=== PATIENT | female | born 1985 | race Caucasian/White ===

== ENCOUNTER 2021-09-07 19:36 | Emergency (ER) | payer MEDICAID, SELFPAY ==
[2021-09-07 19:40] VITALS: BP 156/89; PULSE 104; RESP 22; TEMP 36.7; O2SAT 97; BMI 37.8
--- NOTE | 2021-09-07 19:43 | XR_ITS ---
PROCEDURE INFORMATION: Exam: XR Right Foot Exam date and time: 09/07/2021 7:43 PM Age: 36 years old Clinical indication: Injury or trauma; Fall; Blunt trauma; Foot; Right; Additional info: Fell TECHNIQUE: Imaging protocol: XR Right foot. Views: 3 or more views. COMPARISON: No relevant prior studies available. FINDINGS: Bones/joints: Normal. Soft tissues: Normal. IMPRESSION: No acute findings.
--- NOTE | 2021-09-07 20:21 | HMH.EDUTC ---
[facility] – [place] Disposition Clinical Impression: Foot contusion Qualifiers: Encounter type: initial encounter Laterality: right Qualified Code(s): S90.31XA - Contusion of right foot, initial encounter Disposition: Home, Self-Care Condition on Discharge: Good Instructions: How To Perform RICE (Rest, Ice, Compress, Elevate), DI for Contusion, DI for Foot Sprain Additional Instructions: *weight bearing as tolerated *RICE, Rest the extremity, Ice 15-20 minutes 3-4 times daily, Compress- wear the maury wrap as discussed as much as possible to help reduce swelling and pain, Elevate the extremity when at rest *Maury wrap is for support and help control swelling, use it except in the shower. Be sure that is not to tight but not to loose either *Elevate when resting *Tylenol may help with pain if you can take it Immediately follow up with your family doctor for new or worsening of symptoms, or no noticeable improvement over the next 3-5 days Return if needed Referrals: Provider,Referral, MD [Primary Care Provider] - As needed Time of Disposition: 20:34 Medical Decision Making - Arash Inquiry Pt receiving controlled substance: No Arash was queried for this patient: No Vital Signs: 09/07/21 19:40 Temperature 98.0 F Temperature Source Oral Pulse Rate [Left Brachial] 104 H Respiratory Rate 22 Blood Pressure [Left Arm] 156/89 H Blood Pressure Mean [Left Arm] 111 Blood Pressure Source [Left Arm] Automatic Cuff Blood Pressure Position [Left Arm] Sitting 02 Sat by Pulse Oximetry 97 Oxygen Delivery Method Room Air - Radiology Data #1 Image(s): Foot/Toes Image Reviewed: Yes I have reviewed radiologist's interpretation IMPRESSION: No acute findings. [facility] – [place] HPI - General Stated complaint: [birth year]01[birth year] INJURED r FOOT Time Seen by Provider: 09/07/21 20:21 Mode of Arrival: Ambulatory Source of Information: Patient Limitations: No Limitations Description of Symptoms (Recalled from Triage Doc. by RN): PATIENT C/O INJURY TO RIGHT FOOT AFTER FALLING UP SOME STEPS APPROX 2 HOURS ARCH [employer] HEENT Symptoms (Recalled from RN notes): No Resp Symptoms (Recalled from RN notes): No Skin Symptoms (Recalled from RN notes): No MS Symptoms (Recalled from RN notes): Yes Functional Status (Recalled from RN notes): WNL - History of Present Illness Provider Complaint: Patient states that she was walking up the steps at home when the cat ran in front of her and tripped her and she fell up the steps States that she thinks she may have landed on her foot somehow States that ever since she has been having pain when she tries to walk on it and it looked bruised and swollen so she came in - Related Data Allergies Allergy/AdvReac Type Severity Reaction Status Date / Time Penicillins Allergy Verified 04/17/19 10:14 - Worker's Comp Is this a Worker's Comp case?: No [facility] History - Hepatitis A Screen Drug use history?: No High risk sexual behaviors?: No History of sexually transmitted infection?: No Currently employed?: No Childcare worker?: No Do you have indoor plumbing?: Yes Do you have electricity?: Yes Attestation statement:: This patient has been screened for Hepatitis A risk factors. I have reviewed the patient's past medical history: Yes - Social History Smoking Status: Current every day smoker Tobacco Type: cigarettes # Packs/Day (cigarettes): 1 Alcohol Intake: never Occupational Status: other ROS Obtained: Yes All systems reviewed & no additional complaints, Yes Systems reviewed as appropriate & no additional complaints - Constitutional Constitutional: Reports system reviewed and no additional complaints, except as docu, Denies body ache, Denies chills, Denies fever(s) - ENT Ears, Nose, Mouth, and Throat: Reports system reviewed and no additional complaints, except as docu - Cardiovascular Cardiovascular: Reports system reviewed and no additional complaints, except as docu - Respiratory Respiratory: Reports system reviewed a
[2021-09-07 20:37] VITALS: BP 156/89; PULSE 104; RESP 22; TEMP 36.7; O2SAT 97
== END 2021-09-07 20:45 | disposition home or self-care (01) ==
PROVIDERS: Emergency Provider Nurse Practitioner
DX: S90.31XA Contusion of right foot, initial encounter (principal); W10.9XXA Fall (on) (from) unspecified stairs and steps, initial encounter; Y92.019 Unspecified place in single-family (private) house as the place of occurrence of the external cause; Z88.0 Allergy status to penicillin; F17.210 Nicotine dependence, cigarettes, uncomplicated
CPT/HCPCS: 73630; 99202; G0463